=== PATIENT | male | born 1990 | race Caucasian/White ===

== ENCOUNTER 2020-01-08 11:21 | Emergency (ER) | payer MEDICAID ==
[~2020-01-08] VITALS: Ht 180.3 cm; Wt 60.0 kg
[~2020-01-08 11:21] MED LIST: ONDA4TAB6 PO
[2020-01-08 11:28] VITALS: BP 158/96
[2020-01-08] MEDS ORDERED: ondansetron 4mg rapidly disintigrating tab PO ONE (11:40)
[2020-01-08] MEDS ORDERED: HYDROcodone/acetaminophen 5mg/325mg tablet PO ONE (11:40)
[2020-01-08] MEDS ORDERED: IBUP-1984 PO (11:42)
[2020-01-08] MEDS ORDERED: PENI500T2 PO (11:42)
== END 2020-01-08 11:57 | disposition home or self-care (01) ==
LOC: ER 11:21
DX: K04.7 Periapical abscess without sinus (principal); Z98.890 Other specified postprocedural states; Z72.89 Other problems related to lifestyle; Z79.2 Long term (current) use of antibiotics; Z79.899 Other long term (current) drug therapy
CPT/HCPCS: 99283

== ENCOUNTER 2020-01-13 08:01 | Emergency (ER) | payer MEDICAID ==
[~2020-01-13] VITALS: Ht 180.3 cm; Wt 66.0 kg
[~2020-01-13 08:01] MED LIST changes: +IBUP-1984 PO; +PENI500T2 PO
[2020-01-13] MEDS ORDERED: ONDA8TAB13 PO (09:05)
[2020-01-13] MEDS ORDERED: ondansetron 4mg rapidly disintigrating tab PO ONE (09:05)
[2020-01-13 09:32] VITALS: BP 135/71
== END 2020-01-13 09:41 | disposition home or self-care (01) ==
LOC: ER 08:02
DX: K08.89 Other specified disorders of teeth and supporting structures (principal); Z20.828 Contact with and (suspected) exposure to other viral communicable diseases; K02.9 Dental caries, unspecified; R11.2 Nausea with vomiting, unspecified; Z98.890 Other specified postprocedural states; Z79.2 Long term (current) use of antibiotics; Z79.899 Other long term (current) drug therapy; Z72.89 Other problems related to lifestyle
CPT/HCPCS: 36415; 87635; 99283

== ENCOUNTER 2021-11-13 21:09 | Emergency (ER) | payer MEDICAID ==
[~2021-11-13] VITALS: Ht 170.2 cm; Wt 61.3 kg
[~2021-11-13 21:09] MED LIST changes: -IBUP-1984 PO; +ONDA8TAB13 PO; -PENI500T2 PO
[2021-11-13 21:15] VITALS: BP 133/82
== END 2021-11-13 21:39 | disposition left against medical advice (07) ==
LOC: ER 21:09
DX: F29 Unspecified psychosis not due to a substance or known physiological condition (principal); Z53.21 Procedure and treatment not carried out due to patient leaving prior to being seen by health care provider

== ENCOUNTER 2022-01-11 09:36 | Emergency (ER) | payer MEDICAID ==
[~2022-01-11] VITALS: Ht 180.3 cm; Wt 59.1 kg
[2022-01-11] MEDS ORDERED: normal saline 1000ml 1,000 ML IV ONE ×2 (10:30→11:54)
[2022-01-11] MEDS ORDERED: ondansetron/PF 4mg/2ml inj IV ONE (10:30)
[2022-01-11 10:34] LABS: CLARITY,URINE CLEAR (Clear); COLOR,URINE YELLOW (Yellow); GLUCOSE, URINE NEGATIVE (Neg); KETONES,URINE TRACE mg/dl (Neg); LEUKOCYTE ESTERASE ,URINE NEGATIVE (Neg); NITRITES, URINE NEGATIVE (Neg); OCCULT BLOOD,URINE TRACE-INTACT (Neg); PH,URINE 5.5 (4.8-8.0); PROTEIN,URINE 100 mg/dl (Neg); UROBILINOGEN,URINE 0.2 E.U/dL (0.2-1.0)
[2022-01-11 10:36] LABS: UA COLLECTION TYPE CLN CATCH MIDSTREAM
[2022-01-11 10:42] LABS: BACTERIA,URINE FEW /HPF (Neg); RBC,URINE 0-2 /HPF (0-2); WBC,URINE 0-4 /HPF (0-4)
[2022-01-11 10:43] LABS: FINE GRANULAR CAST 0-3 /LPF (NEGATIVE); HYALINE CASTS 0-3 /LPF (NEGATIVE); MUCUS STRANDS MANY /LPF (Neg); SQUAMOUS EPITHELIAL CELL,UR FEW /LPF (FEW)
[2022-01-11 10:59] LABS: BASOPHILS # (AUTO) 0.1 X10'3 (0-0.2); BASOPHILS % (AUTO) 0.5 % (0-1); EOSINOPHILS % (AUTO) 0 % (0-6); HEMATOCRIT 47.1 % (42.0-52.0); HEMOGLOBIN 16.2 g/dl (14.0-17.9); LYMPHOCYTES # (AUTO) 0.7 X10'3 (1.1-4.8); MEAN CORPUSCULAR HEMOGLOBIN 32.2 PG (27.0-31.0); MEAN CORPUSCULAR HGB CONC 34.3 g/dL (33.0-36.5); MEAN CORPUSCULAR VOLUME 93.7 FL (78-98); MEAN PLATELET VOLUME 10.6 FL (7.4-10.4); MONOCYTES # (AUTO) 1.4 X10'3 (0-0.9); MONOCYTES % (AUTO) 12.3 % (2-12); NEUTROPHILS # (AUTO) 9.3 X10'3 (1.8-7.7); NEUTROPHILS % (AUTO) 81.2 % (42-75); PLATELET COUNT 141 X10'3 (140-440); RED BLOOD COUNT 5.02 X10'6 (4.70-6.10); RED CELL DISTRIBUTION WIDTH 13.8 % (11.5-14.5); WHITE BLOOD COUNT 11.4 X10'3 (4.5-11.0)
[2022-01-11 11:13] LABS: ALANINE AMINOTRANSFERASE 31 U/L (12-78); ALKALINE PHOSPHATASE 63 IU/L (46-116); ANION GAP 12 (8-16); ASPARTATE AMINO TRANSFERASE 41 U/L (10-37); BILIRUBIN,TOTAL 0.4 MG/DL (0.1-1.0); BLOOD UREA NITROGEN 15 MG/DL (7-18); BUN/CREATININE RATIO 10.9 (5.4-32.0); C-REACTIVE PROTEIN 9.85 MG/DL (0.0-0.5); CALCIUM 9.3 MG/DL (8.5-10.1); CHLORIDE 97 MMOL/L (99-107); CREATININE 1.37 MG/DL (0.60-1.10); GLUCOSE 112 MG/DL (70-104); POTASSIUM 3.3 MMOL/L (3.5-5.1); SODIUM 136 MMOL/L (135-145); TOTAL CARBON DIOXIDE 26.9 MMOL/L (24-32); TOTAL PROTEIN 7.9 G/DL (6.4-8.2); eGFR 60 ML/MIN
[2022-01-11 11:14] LABS: LARGE PLATELETS FEW; PLATELET ESTIMATE DECREASED; TOTAL CELLS COUNTED 100
[2022-01-11 11:15] LABS: TOXIC GRANULATION 1+; TOXIC VACUOLATION FEW
[2022-01-11] MEDS ORDERED: POTASSIUM BICARB 20meq eff tab 20 MEQ TABLET.EFF PO ONE (12:05)
--- NOTE | 2022-01-11 12:19 | NUR ---
per [employer] finish [employer] no need for blood cultures prior to iv antibiotic administration.
[2022-01-11 12:20] VITALS: BP 126/83
== END 2022-01-11 12:19 | disposition home or self-care (01) ==
LOC: ER 09:36
DX: J11.1 Influenza due to unidentified influenza virus with other respiratory manifestations (principal); Z20.822 Contact with and (suspected) exposure to COVID-19; R11.2 Nausea with vomiting, unspecified; R50.9 Fever, unspecified; F41.9 Anxiety disorder, unspecified; F32.A Depression, unspecified; Z98.890 Other specified postprocedural states; Z72.89 Other problems related to lifestyle; Z79.899 Other long term (current) drug therapy
CPT/HCPCS: 36415; 80053; 81001; 84145; 85007; 85025; 86140; 87502; 87503; 87635; 96361; 96374; 99283; C9803; J2405; J7030

== ENCOUNTER 2022-01-11 17:43 | Emergency (ER) | payer MEDICAID ==
[~2022-01-11] VITALS: Ht 180.3 cm; Wt 59.1 kg
[2022-01-11 18:06] VITALS: BP 111/65
== END 2022-01-11 22:17 | disposition left against medical advice (07) ==
LOC: ER 17:44
DX: R50.9 Fever, unspecified (principal); Z53.21 Procedure and treatment not carried out due to patient leaving prior to being seen by health care provider

== ENCOUNTER 2022-01-12 10:18 | Emergency (ER) | payer MEDICAID ==
[~2022-01-12] VITALS: Ht 180.3 cm; Wt 59.1 kg
[2022-01-12 10:57] VITALS: BP 119/68
== END 2022-01-12 14:35 | disposition left against medical advice (07) ==
LOC: ER 10:18
DX: R10.9 Unspecified abdominal pain (principal); Z53.21 Procedure and treatment not carried out due to patient leaving prior to being seen by health care provider

== ENCOUNTER 2023-01-11 03:06 | Emergency (ER) | payer MEDICAID ==
[~2023-01-11] VITALS: Ht 170.2 cm; Wt 72.7 kg
[2023-01-11 03:07] VITALS: BP 141/94; PULSE 85; RESP 20; O2SAT 98
--- NOTE | 2023-01-11 03:20 | NUR ---
pt refused care . pt self removed iv, dressing applied by nurse. pt walked out of ambulance door , last seen by er staff heading towards [id number]. yimi bright called and reported by this nurse. informed.
[2023-01-11] MEDS ORDERED: SULF1TAB49 PO (04:05)
== END 2023-01-11 03:42 | disposition left against medical advice (07) ==
LOC: ER 03:06
DX: S01.81XA Laceration without foreign body of other part of head, initial encounter (principal); F10.129 Alcohol abuse with intoxication, unspecified; X58.XXXA Exposure to other specified factors, initial encounter; Y93.89 Activity, other specified; Y92.89 Other specified places as the place of occurrence of the external cause; Y99.8 Other external cause status; Y90.9 Presence of alcohol in blood, level not specified
CPT/HCPCS: 99283

== ENCOUNTER 2023-01-11 03:54 | Emergency (ER) | payer MEDICAID ==
[~2023-01-11] VITALS: Ht 175.3 cm; Wt 79.5 kg
[2023-01-11 03:55] VITALS: TEMP 98
[2023-01-11] MEDS ORDERED: bacitracin 15gm ointment TP ONE (03:55)
[2023-01-11] MEDS ORDERED: ketorolac trometh inj. 60 MG/2 ML VIAL IM ONE (04:00)
[2023-01-11] MEDS ORDERED: SULF1TAB49 PO (04:05)
[2023-01-11 04:15] VITALS: BP 143/99; PULSE 100; O2SAT 99
[2023-01-11 04:41] VITALS: RESP 16
== END 2023-01-11 04:51 | disposition home or self-care (01) ==
LOC: ER 03:55
DX: S61.411A Laceration without foreign body of right hand, initial encounter (principal); S80.812A Abrasion, left lower leg, initial encounter; S80.811A Abrasion, right lower leg, initial encounter; X58.XXXA Exposure to other specified factors, initial encounter; Y93.89 Activity, other specified; Y92.89 Other specified places as the place of occurrence of the external cause; Y99.8 Other external cause status
CPT/HCPCS: 12001; 96372; 99284; A6222; J1885; 99283; A6449